=== PATIENT | male | born 1970 | race Caucasian/White ===

== ENCOUNTER 2020-04-04 20:50 | Observation (INO) | payer SELFPAY ==
[2020-04-04 21:03] VITALS: BP 98/61; PULSE 117; RESP 18; TEMP 38.7; O2SAT 96; BMI 28.0
--- NOTE | 2020-04-04 21:17 | CTR_ITS ---
PROCEDURE INFORMATION: Exam: CT Abdomen And Pelvis With Contrast Exam date and time: 04/04/2020 11:05 PM Age: 49 years old Clinical indication: Abdominal pain; Localized; Right lower quadrant (rlq); Patient HX: Rlq pain w n/v and fever TECHNIQUE: Imaging protocol: Computed tomography of the abdomen and pelvis with intravenous contrast. Radiation optimization: All CT scans at this facility use at least one of these dose optimization techniques: automated exposure control; mA and/or kV adjustment per patient size (includes targeted exams where dose is matched to clinical indication); or iterative reconstruction. Contrast material: OMNI 300; Contrast volume: 95 ml; Contrast route: INTRAVENOUS (IV); COMPARISON: No relevant prior studies available. RADIATION DOSE METRICS: Total DLP (mGy-cm): 824.81 FINDINGS: Lungs: Mild atelectasis at bilateral lung bases. Liver: Unremarkable. Gallbladder and bile ducts: Unremarkable. Pancreas: Unremarkable. Spleen: Unremarkable. Adrenals: Unremarkable. Kidneys and ureters: The kidneys are unremarkable. No renal stones identified. No hydronephrosis on either side. Stomach and bowel: No bowel obstruction identified. No diverticulitis identified. Appendix: The appendix is enlarged, measuring 1.4 cm in caliber on series 2, image 57. Moderate inflammatory change of the surrounding fat. Appearance is highly consistent with acute appendicitis. Prominent appendicolith in the proximal appendix. No perforation or abscess identified. Intraperitoneal space: No free intraperitoneal air identified. No free intraperitoneal fluid identified. Vasculature: No abdominal aortic aneurysm. Lymph nodes: Unremarkable. Bladder: Unremarkable as visualized. Reproductive: Unremarkable as visualized. Bones/joints: Minimal degenerative changes of the lower thoracic spine and the lumbar spine. Soft tissues: Unremarkable. CT/CT abdomen pelvis w con* [id number] IMPRESSION: 1. Acute appendicitis. No perforation or abscess identified. Radiation Dose CTDIVOL = (mGy): DLP = 824.81 (mGy-cm)
--- NOTE | 2020-04-04 21:18 | ED_ITS ---
Documented by User: MERARI Skinner 04/04/20 23:57 HPI - Abdominal Pain General: Chief Complaint: Abdominal Pain Stated Complaint: abd pain Time Seen by Provider: 04/04/20 21:14 History of Present Illness: HPI narrative: Patient planes right lower quadrant pain started day. And had a bowel movement today. Has been vomiting. MD elicited complaint: abdominal pain Pertinent past history: constipation Onset (ago): hour(s) Pain Consistency: constant Location: RLQ Severity: moderate Quality: cramping and aching Radiation: RLQ Migration to: no migration Exacerbating factors: nothing Relieving factors: nothing Context: other (Lives in [facility] appears to be [facility] travel down here on Sunday has not been rounding by with a COVID virus) Associated Symptoms: Reports nausea and vomiting; Denies chills and fever(s) Review of Systems Const: Denies: fever(s), chills or body aches Eyes: Denies: change in vision or blurry vision ENMT: Denies: throat pain or nasal congestion Card: Denies: chest pain or dyspnea on exertion Resp: Denies: dyspnea, productive cough or non-productive cough GI: Reports: abdominal pain, nausea and vomiting : Denies: difficulty urinating Musc: Denies: extremity pain Skin/Breast: Denies: rash Neuro: Denies: headache(s) Psych: Denies: anxiety or depression Jaron/Lymph: Denies: easy bruising PFSH ED PFSH: Medical History No significant past medical history Surgical History History of radius fracture R -- hardware in place Social History (Updated 04/05/20 @ 02:47 by Ravi Saunders MD) Smoking and tobacco status: current every day smoker cigars Years smoked cigars: 20 Alcohol intake: never Physical Exam Const: COMMON NORMALS: no acute distress, average body habitus and patient oriented x3 HENMT: COMMON NORMALS: normocephalic HEAD & SCALP: normal to inspection and normocephalic FACE & SINUS: normal facial exam Eye: COMMON NORMALS: conjunctivae normal GENERAL EYE: appearance normal, both eyes and all related structures CONJUNCTIVA: Yes conjunctivae normal Neck/C-Spine: COMMON NORMALS: no JVD Chest: COMMONS NORMALS: normal inspection of the chest Resp: COMMON NORMALS: normal respiratory effort and clear to auscultation bilaterally AUSCULTATION: clear to auscultation bilaterally Cardio: COMMON NORMALS: no JVD, regular rate and regular rhythm RATE: regular rate RHYTHM: regular rhythm GI: INSPECTION: Yes normal to inspection AUSCULTATION: Yes Hypoactive bowel sounds present PALPATION: Yes Tenderness to palpation present (GI) Details: RLQ PERCUSSION: normal to percussion Extremity: COMMON NORMALS: normal to inspection and full ROM Neuro: COMMON NORMALS: patient oriented x3 Course Vital Signs: Vital signs: Vital Signs Temperature 98.8 F 04/05/20 03:05 Pulse Rate 91 04/05/20 03:05 Respiratory Rate 18 04/05/20 03:05 Blood Pressure 112/69 04/05/20 03:05 Pulse Oximetry 95 04/05/20 03:05 MDM - Abdominal Pain MDM Narrative: Medical decision making narrative: Spoke with Dr. Strong after receiving call from the read patient has acute appendicitis. Dr. Strong will take it from here. Lab Data: Labs: Lab Results 04/04/20 04/04/20 04/04/20 Range/Units 21:20 21:20 21:20 WBC 13.6 H (4.0-10.0) 10^3/ uL RBC 4.80 (4.1-5.3) 10^6/u L Hgb 15.7 (11.7-16.6) g/dL Hct 46.3 (42.0-52.0) % MCV 96.5 H (80-94) fL MCH 32.7 (28.0-34.0) pg MCHC 33.9 (30.0-36.0) g/dL RDW 11.8 L (12.1-15.1) % Plt Count 184 (130-400) 10^3/c mm MPV 10.0 (7.4-10.4) fL Neut % (Auto) 91.1 % Lymph % (Auto) 5.4 % [place] % (Auto) 2.5 % Eos % (Auto) 0.1 % Baso % (Auto) 0.4 % Neut # (Auto) 12.4 H (1.8-7.7) 10^3/u L Lymph # (Auto) 0.7 L (0.8-4.8) 10^3/u L [place] # (Auto) 0.3 (0.2-0.9) 10^3/u L Eos # (Auto) 0.0 (0.0-0.8) 10^3/u L Baso # (Auto) 0.1 (0.0-0.1) 10^3/u L Nucleated RBC % (a uto) 0 % Nucleated RBCs # 0.0 /100WBC Sodium 136 (136-145) mmol/L Potassium 3.3 L (3.5-5.1) mmol/L Chloride 100 (98-107) mmol/L Carbon Dioxide 23 (22-29) mmol/L Anion Gap 16.3 (5-19) BUN 10 (6-20) mg/dL Creatinine 1.0 (0.7-1.2) mg/dL GFR Calculation 79.4 L (90-130) mL/min Glucose 128 H (65-115) mg/dL Calculated Osmolal ity 280 L (285-295) mOsm/k g Lactic Acid 1.1 (0.5-2.2) mmol/L Calcium 9.4 (8.5-10.5) mg/dL Total Bilirubin 1.3 H (0.15-1.2) mg/dL AST 18 (0-40) U/L ALT 19 (0-41) U/L Alkaline Phosphata se 55 (40-130) IU/L C-Reactive Protein 61.6 H (0.0-4.9) mg/L Total Protein 6.9 (6.6-8.7) g/dL Albumin 4.0 (3.5-5.2) g/dL Globulin 2.9 (1.3-4.6) g/dL Lipase 19 (13-60) U/L Urine Color (Yellow) Urine Appearance (CLEAR) Urine pH (5-7) Ur Specific Gravit y (1.005-1.030) Urine Protein (Negative) Urine Glucose (UA) (Normal) Urine Ketones (Negative) Urine Blood (Negative) Urine Nitrate (Negative) Urine Bilirubin (NEGATIVE) Urine Urobilinogen (Negative) mg/dL Ur Leukocyte July ase (Negative) 04/04/20 Range/Units 23:31 WBC (4.0-10.0) 10^3/ uL RBC (4.1-5.3) 10^6/u L Hgb (11.7-16.6) g/dL Hct (42.0-52.0) % MCV (80-94) fL MCH (28.0-34.0) pg MCHC (30.0-36.0) g/dL RDW (12.1-15.1) % Plt Count (130-400) 10^3/c mm MPV (7.4-10.4) fL Neut % (Auto) % Lymph % (Auto) % [place] % (Auto) % Eos % (Auto) % Baso % (Auto) % Neut # (Auto) (1.8-7.7) 10^3/u L Lymph # (Auto) (0.8-4.8) 10^3/u L [place] # (Auto) (0.2-0.9) 10^3/u L Eos # (Auto) (0.0-0.8) 10^3/u L Baso # (Auto) (0.0-0.1) 10^3/u L Nucleated RBC % (a uto) % Nucleated RBCs # /100WBC Sodium (136-145) mmol/L Potassium (3.5-5.1) mmol/L Chloride (98-107) mmol/L Carbon Dioxide (22-29) mmol/L Anion Gap (5-19) BUN (6-20) mg/dL Creatinine (0.7-1.2) mg/dL GFR Calculation (90-130) mL/min Glucose (65-115) mg/dL Calculated Osmolal ity (285-295) mOsm/k g Lactic Acid (0.5-2.2) mmol/L Calcium (8.5-10.5) mg/dL Total Bilirubin (0.15-1.2) mg/dL AST (0-40) U/L ALT (0-41) U/L Alkaline Phosphata se (40-130) IU/L C-Reactive Protein (0.0-4.9) mg/L Total Protein (6.6-8.7) g/dL Albumin (3.5-5.2) g/dL Globulin (1.3-4.6) g/dL Lipase (13-60) U/L Urine Color Yellow (Yellow) Urine Appearance Clear (CLEAR) Urine pH 6 (5-7) Ur Specific Gravit y 1.000 L (1.005-1.030) Urine Protein Neg (Negative) Urine Glucose (UA) Norm (Normal) Urine Ketones Negative (Negative) Urine Blood Neg (Negative) Urine Nitrate Negative (Negative) Urine Bilirubin Neg (NEGATIVE) Urine Urobilinogen Norm (Negative) mg/dL Ur Leukocyte July ase Negative (Negative) Discharge Plan Discharge Admit Provider: Ravi Saunders Discharge Date/Time: 04/05/20 02:35 Coding Level of Care Code ED Body Coverer for Chg Fwd Exam Comprehensive Documented by User: Syd Strong DO 04/05/20 04:08 HPI - Abdominal Pain General: Chief Complaint: Abdominal Pain Stated Complaint: abd pain Time Seen by Provider: 04/04/20 21:14 [facility] ED PFSH: Medical History No significant past medical history Surgical History History of radius fracture R -- hardware in place Social History (Updated 04/05/20 @ 02:47 by Ravi Saunders MD) Smoking and tobacco status: current every day smoker cigars Years smoked cigars: 20 Alcohol intake: never Course Consultations: Consultation #1: [email or web address] Vital Signs: Vital signs: Vital Signs Temperature 98.8 F 04/05/20 03:05 Pulse Rate 91 04/05/20 03:05 Respiratory Rate 18 04/05/20 03:05 Blood Pressure 112/69 04/05/20 03:05 Pulse Oximetry 95 04/05/20 03:05 MDM - Abdominal Pain MDM Narrative: Medical decision making narrative: 49-year-old male checked out to me by Mr. Jauregui. [place] is from out of town. He presents with right lower quadrant pain. He has a fever of 101.6. His white blood cell count is 13.6. Other laboratory is essentially benign. He has a dilated inflamed appendix by CT without perforation. Spoke with surgery. Recommends Zosyn, and surgery later this morning. Lab Data: Labs: Lab Results 04/04/20 04/04/20 04/04/20 Range/Units 21:20 21:20 21:20 WBC 13.6 H (4.0-10.0) 10^3/ uL RBC 4.80 (4.1-5.3) 10^6/u L Hgb 15.7 (11.7-16.6) g/dL Hct 46.3 (42.0-52.0) % MCV 96.5 H (80-94) fL MCH 32.7 (28.0-34.0) pg MCHC 33.9 (30.0-36.0) g/dL RDW 11.8 L (12.1-15.1) % Plt Count 184 (130-400) 10^3/c mm MPV 10.0 (7.4-10.4) fL Neut % (Auto) 91.1 % Lymph % (Auto) 5.4 % [place] % (Auto) 2.5 % Eos % (Auto) 0.1 % Baso % (Auto) 0.4 % Neut # (Auto) 12.4 H (1.8-7.7) 10^3/u L Lymph # (Auto) 0.7 L (0.8-4.8) 10^3/u L [place] # (Auto) 0.3 (0.2-0.9) 10^3/u L Eos # (Auto) 0.0 (0.0-0.8) 10^3/u L Baso # (Auto) 0.1 (0.0-0.1) 10^3/u L Nucleated RBC % (a uto) 0 % Nucleated RBCs # 0.0 /100WBC Sodium 136 (136-145) mmol/L Potassium 3.3 L (3.5-5.1) mmol/L Chloride 100 (98-107) mmol/L Carbon Dioxide 23 (22-29) mmol/L Anion Gap 16.3 (5-19) BUN 10 (6-20) mg/dL Creatinine 1.0 (0.7-1.2) mg/dL GFR Calculation 79.4 L (90-130) mL/min Glucose 128 H (65-115) mg/dL Calculated Osmolal ity 280 L (285-295) mOsm/k g Lactic Acid 1.1 (0.5-2.2) mmol/L Calcium 9.4 (8.5-10.5) mg/dL Total Bilirubin 1.3 H (0.15-1.2) mg/dL AST 18 (0-40) U/L ALT 19 (0-41) U/L Alkaline Phosphata se 55 (40-130) IU/L C-Reactive Protein 61.6 H (0.0-4.9) mg/L Total Protein 6.9 (6.6-8.7) g/dL Albumin 4.0 (3.5-5.2) g/dL Globulin 2.9 (1.3-4.6) g/dL Lipase 19 (13-60) U/L Urine Color (Yellow) Urine Appearance (CLEAR) Urine pH (5-7) Ur Specific Gravit y (1.005-1.030) Urine Protein (Negative) Urine Glucose (UA) (Normal) Urine Ketones (Negative) Urine Blood (Negative) Urine Nitrate (Negative) Urine Bilirubin (NEGATIVE) Urine Urobilinogen (Negative) mg/dL Ur Leukocyte July ase (Negative) 04/04/20 Range/Units 23:31 WBC (4.0-10.0) 10^3/ uL RBC (4.1-5.3) 10^6/u L Hgb (11.7-16.6) g/dL Hct (42.0-52.0) % MCV (80-94) fL MCH (28.0-34.0) pg MCHC (30.0-36.0) g/dL RDW (12.1-15.1) % Plt Count (130-400) 10^3/c mm MPV (7.4-10.4) fL Neut % (Auto) % Lymph % (Auto) % [place] % (Auto) % Eos % (Auto) % Baso % (Auto) % Neut # (Auto) (1.8-7.7) 10^3/u L Lymph # (Auto) (0.8-4.8) 10^3/u L [place] # (Auto) (0.2-0.9) 10^3/u L Eos # (Auto) (0.0-0.8) 10^3/u L Baso # (Auto) (0.0-0.1) 10^3/u L Nucleated RBC % (a uto) % Nucleated RBCs # /100WBC Sodium (136-145) mmol/L Potassium (3.5-5.1) mmol/L Chloride (98-107) mmol/L Carbon Dioxide (22-29) mmol/L Anion Gap (5-19) BUN (6-20) mg/dL Creatinine (0.7-1.2) mg/dL GFR Calculation (90-130) mL/min Glucose (65-115) mg/dL Calculated Osmolal ity (285-295) mOsm/k g Lactic Acid (0.5-2.2) mmol/L Calcium (8.5-10.5) mg/dL Total Bilirubin (0.15-1.2) mg/dL AST (0-40) U/L ALT (0-41) U/L Alkaline Phosphata se (40-130) IU/L C-Reactive Protein (0.0-4.9) mg/L Total Protein (6.6-8.7) g/dL Albumin (3.5-5.2) g/dL Globulin (1.3-4.6) g/dL Lipase (13-60) U/L Urine Color Yellow (Yellow) Urine Appearance Clear (CLEAR) Urine pH 6 (5-7) Ur Specific Gravit y 1.000 L (1.005-1.030) Urine Protein Neg (Negative) Urine Glucose (UA) Norm (Normal) Urine Ketones Negative (Negative) Urine Blood Neg (Negative) Urine Nitrate Negative (Negative) Urine Bilirubin Neg (NEGATIVE) Urine Urobilinogen Norm (Negative) mg/dL Ur Leukocyte July ase Negative (Negative) Discharge Plan Discharge Admit Provider: Ravi Saunders Discharge Date/Time: 04/05/20 02:35 Coding Level of Care Code ED Body Coverer for Chg Fwd Exam Comprehensive
[2020-04-04 21:25] LABS: Basophils # 0.1 10^3/uL (0.0-0.1); Basophils % 0.4 %; Eosinophils % 0.1 %; Hematocrit 46.3 % (42.0-52.0); Hemoglobin 15.7 g/dL (11.7-16.6); Lymphocytes # 0.7 10^3/uL (0.8-4.8); Lymphocytes % 5.4 %; Mean Corpuscular HGB Conc 33.9 g/dL (30.0-36.0); Mean Corpuscular Hemoglobin 32.7 pg (28.0-34.0); Mean Corpuscular Volume 96.5 fL (80-94); Monocytes # 0.3 10^3/uL (0.2-0.9); Monocytes % 2.5 %; Neutrophils # 12.4 10^3/uL (1.8-7.7); Neutrophils % 91.1 %; Nucleated Red Blood Cells % 0 %; Platelet Count 184 10^3/cmm (130-400); Red Cell Distribution Width 11.8 % (12.1-15.1); White Blood Count 13.6 10^3/uL (4.0-10.0)
[2020-04-04 21:44] LABS: Lactic Sepsis W/Reflex 1.1 mmol/L (0.5-2.2)
[2020-04-04 21:45] LABS: Alanine Aminotransferase 19 U/L (0-41); Alkaline Phosphatase 55 IU/L (40-130); Anion Gap 16.3 (5-19); Aspartate Amino Transferase 18 U/L (0-40); Blood Urea Nitrogen 10 mg/dL (6-20); Calcium 9.4 mg/dL (8.5-10.5); Carbon Dioxide 23 mmol/L (22-29); Chloride 100 mmol/L (98-107); Globulin 2.9 g/dL (1.3-4.6); Glomerular Filtration Rate 79.4 mL/min (90-130); Glucose 128 mg/dL (65-115); Lipase 19 U/L (13-60); Osmolality Calculated 280 mOsm/kg (285-295); Potassium 3.3 mmol/L (3.5-5.1); Sodium 136 mmol/L (136-145); Total Bilirubin 1.3 mg/dL (0.15-1.2); Total Protein 6.9 g/dL (6.6-8.7)
[2020-04-04 22:03] LABS: C Reactive Protein 61.6 mg/L (0.0-4.9)
[2020-04-04] MEDS: sodium chloride 0.9% 1,000 ML 999 ML IV (22:43)
[2020-04-04] MEDS: ondansetron 2 mg/ML SDV 2 mL 4 MG IVP (22:43)
[2020-04-04] MEDS: potassium chloride ER 10 mEq Tablet 40 MEQ PO (22:44)
[2020-04-04] MEDS: iohexol 300 mg/mL 100 mL Btl IV (23:23)
[2020-04-04 23:42] LABS: Add Urine Microscopic? NO
[2020-04-04 23:47] LABS: Bilirubin Urine Neg (NEGATIVE); Blood Urine Neg (Negative); Glucose Urine UA Norm (Normal); Ketones Urine Negative (Negative); Leukocyte Esterase Urine Negative (Negative); Nitrate Urine Negative (Negative); Protein Urine Neg (Negative); Urine Appearance Clear (CLEAR); Urine Color Yellow (Yellow); Urobilinogen Urine Norm (Negative); pH Urine 6 (5-7)
[2020-04-05] VITALS (22 sets, daily range): BP systolic 95–141; BP diastolic 40–81; PULSE 69–108; RESP 16–22; TEMP 36.7–37.8; O2SAT 90–96
[2020-04-05] MEDS: piperacillin-tazobactam 3.375 GM in sodium chloride 0.9% (plus) 50 ML IV (00:43)
--- NOTE | 2020-04-05 02:06 | PM.HP ---
Providers/Chief Complaint Admitting Physician: Ravi Saunders MD Chief Complaint: abd pain History of Present Illness Ismael Martinez is a 49 year old male who developed some lower abdominal pain about 36 hours ago. He went to bed and was hoping it would be better when he woke up yesterday but he said it was worse. He lives in [facility] and is in the area visiting his children. He became nauseated and vomited several times. There was no evidence of hematemesis. He says he has been having fevers and chills at home. He told me that they measured his temperature up to 105 degrees once, but he thinks there may have been something wrong with the thermometer. He has had a normal bowel movement within the past 12 hours. He eventually came to the hospital and a CAT scan showed evidence of acute appendicitis. The patient has never had a colonoscopy. He has no known family history of any colon neoplasia. Review of Systems General: Reports: 10 or more systems reviewed and unremarkable except in HPI and below Const: Reports: fever(s) and chills GI: Reports: abdominal pain, nausea and vomiting; Denies: change in bowel habits Medications/Allergies Allergies Allergy/AdvReac Type Severity Reaction Status Date / Time droperidol [From Inapsine] Allergy anxious Verified 04/05/20 02:45 propoxyphene Allergy vomiting Verified 04/05/20 02:45 [From Darvocet-N 100] PFSH Acute PFSH: Medical History (Updated 04/05/20 @ 02:41 by Ravi Saunders MD) No significant past medical history Surgical History (Updated 04/05/20 @ 02:41 by Ravi Saunders MD) History of radius fracture R -- hardware in place Social History (Updated 04/05/20 @ 02:47 by Ravi Saunders MD) Smoking and tobacco status: current every day smoker cigars Years smoked cigars: 20 Alcohol intake: never Vitals/I&O/Wt Last Vital Signs Temp 101.6 F H 04/04/20 21:03 Pulse 117 H 04/04/20 21:03 Resp 18 04/04/20 21:03 BP 98/61 04/04/20 21:03 Pulse Ox 96 04/04/20 21:03 Weight last 48 hrs Weight 190 lb Physical Exam Narrative: EXAM NARRATIVE: The patient was encountered in his hospital room. He does not appear to be in any distress. The pupils are equal. No carotid bruits are heard. The lungs are clear anteriorly. The heart is regular. The abdomen reveals bowel sounds it may be somewhat hypoactive. The abdomen is soft. Rovsing's sign is positive. The patient's maximum point of tenderness is at McBurney's point or slightly lateral to that. No obvious masses are palpated. The extremities reveal no edema. Neurologically the patient appears to be grossly intact. Data : 04/04/20 21:20 04/04/20 21:20 Micro: Microbiology 04/04/20 22:00 Blood Culture - Preliminary Blood SPECIMEN COLLECTED 04/04/20 21:20 Blood Culture - Preliminary Blood SPECIMEN COLLECTED CT Abd/Pel: Radiologist's impression: CT abdomen/pelvis 04/04/2020 iMPRESSION: 1. Acute appendicitis. No perforation or abscess identified. A&P Assessment and plan (1) Acute appendicitis with localized peritonitis: CT reviewed. I agree with the diagnosis of acute appendicitis. The appendix occupies a mostly retroperitoneal position behind the cecum. I discussed appendicitis with the patient in some detail. Both conservative and surgical methods of management were discussed. Surgical risks of bleeding, infection, internal organ injury, etc. were all gone over. The patient seems to understand and is agreeable to proceeding with an appendectomy today. Status: Acute Attestations Medical Necessity Statement*: Based on my medical assessment, presenting symptoms and consideration of the scope of surgical therapy, I expect this patient will require treatment in the hospital for a period of time spanning less than 2 midnights, and is therefore being placed in observation status. Coding Level of Care Code Acute Event Marketing Manager for [facility] Dejan Diagnoses Acute appendicitis with localized peritonitis K35.30
[2020-04-05] MEDS: dextrose 5%-ns + KCl 40 40 MEQ/1,000 ML BAG 125 MEQ IV (03:03)
[2020-04-05 04:47] LABS: Basophils # 0.1 10^3/uL (0.0-0.1); Basophils % 0.4 %; Eosinophils # 0.1 10^3/uL (0.0-0.8); Eosinophils % 0.4 %; Hematocrit 43.4 % (42.0-52.0); Hemoglobin 14.5 g/dL (11.7-16.6); Lymphocytes # 1.1 10^3/uL (0.8-4.8); Lymphocytes % 7.6 %; Mean Corpuscular HGB Conc 33.4 g/dL (30.0-36.0); Mean Corpuscular Hemoglobin 31.6 pg (28.0-34.0); Mean Corpuscular Volume 94.6 fL (80-94); Mean Platelet Volume 10.6 fL (7.4-10.4); Monocytes % 6.8 %; Neutrophils # 12.6 10^3/uL (1.8-7.7); Neutrophils % 84.2 %; Nucleated Red Blood Cells % 0 %; Platelet Count 189 10^3/cmm (130-400); Red Blood Count 4.59 10^6/uL (4.1-5.3); Red Cell Distribution Width 11.9 % (12.1-15.1)
[2020-04-05 05:07] LABS: Alanine Aminotransferase 17 U/L (0-41); Albumin Level 3.7 g/dL (3.5-5.2); Alkaline Phosphatase 46 IU/L (40-130); Anion Gap 15.5 (5-19); Aspartate Amino Transferase 16 U/L (0-40); Blood Urea Nitrogen 10 mg/dL (6-20); Calcium 8.5 mg/dL (8.5-10.5); Carbon Dioxide 24 mmol/L (22-29); Chloride 102 mmol/L (98-107); Globulin 2.8 g/dL (1.3-4.6); Glomerular Filtration Rate 71.1 mL/min (90-130); Glucose 145 mg/dL (65-115); Osmolality Calculated 283 mOsm/kg (285-295); Potassium 4.5 mmol/L (3.5-5.1); Sodium 137 mmol/L (136-145); Total Bilirubin 0.8 mg/dL (0.15-1.2); Total Protein 6.5 g/dL (6.6-8.7)
--- NOTE | 2020-04-05 05:42 | ANES.PREANE2 ---
Pre-Anesthetic Assessment Pre-Anesthetic Assessment: Height/Weight: Height 1.75 m Weight 86.183 kg Temp Pulse Resp BP Pulse Ox 100.0 F H 87 18 96/62 93 04/05/20 04:00 04/05/20 04:00 04/05/20 04:00 04/05/20 04:00 04/05/20 04:00 Proposed Procedure: Operation Date: 04/05/20 05:35 Proposed Procedures p Laparoscopic Appendectomy(Not Applicable) - Ravi Saunders MD Last intake: Intake Last Liquid Date 04/04/20 Last Liquid Time 18:00 Last Solid Date 04/04/20 Last Solid Time 15:00 Social: Social History: Tobacco and No alcohol Exam: Pre-Anes Outpt Exam: alert, oriented x 3, clear to auscultation bilaterally and regular rate & rhythm Airway: Submandibular: WNL Cervical ROM: WNL MP: 2 Dentition: Other (teeth ok) History/ROS: No significant history except as noted Pulmonary: Pulmonary: None reported CV/HEM: CV/HEM: None reported : : None reported Hepatic: Hepatic: None reported GI: GI: None reported Metabolic: Metabolic: None reported Musc/skel: Musc/skel: None reported Neuropsych: Neuropsych: None reported Anesthetic Plan: ASA status: 2 Anesthesia: Anesthesia Evaluation and General Risk of > 500 ml blood loss (7ml/kg in children): No Meds/Allergies Current Medications: Current Medications Generic Name Dose Route Start Last Admin Trade Name Freq PRN Reason Stop Dose Admin Potassium Chloride /Dextrose/Sod Cl 40 meq in 1,000 m ls @ 125 mls/hr 04/05/20 02:30 04/05/20 03:03 Dextrose 5%-Ns + Kcl 40 IV 125 mls/hr .Q8H MARIA A Administration PFSH Anesthesia PFSH: Medical History No significant past medical history Surgical History History of radius fracture R -- hardware in place Social History Smoking and tobacco status: current every day smoker cigars Years smoked cigars: 20 Alcohol intake: never Data Anesthesia CBC & Chem 7: 04/05/20 04:21 04/05/20 04:21 Other Labs: Laboratory Results - last 48 hr 04/04/20 04/04/20 04/04/20 21:20 21:20 21:20 WBC 13.6 H RBC 4.80 Hgb 15.7 Hct 46.3 MCV 96.5 H MCH 32.7 MCHC 33.9 RDW 11.8 L Plt Count 184 MPV 10.0 Neut % (Auto) 91.1 Lymph % (Auto) 5.4 [place] % (Auto) 2.5 Eos % (Auto) 0.1 Baso % (Auto) 0.4 Neut # (Auto) 12.4 H Lymph # (Auto) 0.7 L [place] # (Auto) 0.3 Eos # (Auto) 0.0 Baso # (Auto) 0.1 Nucleated RBC % (auto) 0 Nucleated RBCs # 0.0 Sodium 136 Potassium 3.3 L Chloride 100 Carbon Dioxide 23 Anion Gap 16.3 BUN 10 Creatinine 1.0 GFR Calculation 79.4 L Glucose 128 H Calculated Osmolality 280 L Lactic Acid 1.1 Calcium 9.4 Total Bilirubin 1.3 H AST 18 ALT 19 Alkaline Phosphatase 55 C-Reactive Protein 61.6 H Total Protein 6.9 Albumin 4.0 Globulin 2.9 Lipase 19 Urine Color Urine Appearance Urine pH Ur Specific [place] Urine Protein Urine Glucose (UA) Urine Ketones Urine Blood Urine Nitrate Urine Bilirubin Urine Urobilinogen Ur Leukocyte Esterase 04/04/20 04/05/20 04/05/20 23:31 04:21 04:21 WBC 15.0 H RBC 4.59 Hgb 14.5 Hct 43.4 MCV 94.6 H MCH 31.6 MCHC 33.4 RDW 11.9 L Plt Count 189 MPV 10.6 H Neut % (Auto) 84.2 Lymph % (Auto) 7.6 [place] % (Auto) 6.8 Eos % (Auto) 0.4 Baso % (Auto) 0.4 Neut # (Auto) 12.6 H Lymph # (Auto) 1.1 [place] # (Auto) 1.0 H Eos # (Auto) 0.1 Baso # (Auto) 0.1 Nucleated RBC % (auto) 0 Nucleated RBCs # 0.0 Sodium 137 Potassium 4.5 Chloride 102 Carbon Dioxide 24 Anion Gap 15.5 BUN 10 Creatinine 1.1 GFR Calculation 71.1 L Glucose 145 H Calculated Osmolality 283 L Lactic Acid Calcium 8.5 Total Bilirubin 0.8 AST 16 ALT 17 Alkaline Phosphatase 46 C-Reactive Protein Total Protein 6.5 L Albumin 3.7 Globulin 2.8 Lipase Urine Color Yellow Urine Appearance Clear Urine pH 6 Ur Specific [place] 1.000 L Urine Protein Neg Urine Glucose (UA) Norm Urine Ketones Negative Urine Blood Neg Urine Nitrate Negative Urine Bilirubin Neg Urine Urobilinogen Norm Ur Leukocyte Esterase Negative Micro: Microbiology 04/04/20 22:00 Blood Culture - Preliminary Blood SPECIMEN COLLECTED 04/04/20 21:20 Blood Culture - Preliminary Blood SPECIMEN COLLECTED Cardiac Studies: No Data to Display
[2020-04-05] MEDS: metroNIDAZOLE IV 500 MG/100 ML PREMIX 100 MG IV (06:05)
--- NOTE | 2020-04-05 06:49 | P.OP_ITS ---
Operative Report Date of procedure: April 05, 2020 Pre-op Diagnosis: Acute appendicitis. Post-op Diagnosis: Same, with localized perforation. Procedure Done: Laparoscopic appendectomy. Specimens removed/disposition: Appendix. Surgeon: Ravi Saunders Anesthesia: General Estimated blood loss (mL): 5 Complications: None. Condition: stable Disposition: PACU Procedure: The patient was brought to the Operating Room and was placed in a supine position on the operating room table. General endotracheal anesthesia was induced. The abdomen was prepped and draped in a sterile fashion. A small vertical incision was carried out in the superior aspect of the umbilicus. Blunt dissection was carried out down to the fascia, which was grasped with a Nayely clamp. A stay suture of 0 Vicryl was placed on either side of the midline and the midline fascia was incised. The underlying peritoneum was opened bluntly and the [place] port was placed directly into the peritoneal cavity and was held in place with the inflatable balloon. The peritoneal cavity was insufflated with carbon dioxide. The laparoscope was used to inspect the peritoneal cavity. No gross abno rmalities were initially noted. Two 5-millimeter ports were placed in the left lower quadrant under direct vision. The patient was tilted in a Trendelenburg position and slightly to the left side. A laparoscopic Wendy was used to elevate the cecum and the appendix was identified. The base was inflamed and the appendix then took a retrocecal turn. The appendix was freed using blunt dissection. It was found that the patient had a necrotic area/perforation at the junction of the proximal and middle thirds of the appendix. A fecalith fell out of the area as the appendix was being manipulated. The fecalith was eventually retrieved in the laparoscopic bag along with the appendix. The mesoappendix was divided using cautery to maintain hemostasis at the base of the appendix. The base of the appendix appeared relatively healthy and was divided using an endoscopic stapler. The appendix and separate fecalith were removed from the peritoneal cavity after being placed in a laparoscopic bag. The right lower quadrant and pelvis were then extensively irrigated. The staple line on the cecum was identified and appeared to be in good condition. The Asia port was removed from the umbilical site and the stay sutures of Vicryl were tied to each other at the umbilicus. An additional [id number] suture of 0 Vicryl was placed, closing the fascial defect so that it was airtight. A final round of irrigation was carried out in the right lower quadrant and the pelvis. No ongoing problems were seen. The remaining ports were removed from the abdominal wall as the pneumoperitoneum was evacuated. All skin incisions were closed using inverted interrupted sutures of 4-0 Vicryl. Benzoin and Steri-Strips were placed over the incisions and Band- Aids followed. The patient was taken to the Recovery Room in stable condition postoperatively.
[2020-04-05] MEDS: ketorolac 30 mg/mL INJ IVP (07:29)
[2020-04-05] MEDS: famotidine 20 mg/2 mL INJ IVP (08:20)
[2020-04-05] MEDS: D5-NS 0.45% + KCL 20 mEq 20 MEQ/1,000 ML BAG 100 MEQ IV (08:22)
[2020-04-05] MEDS: heparin 5,000 unit/mL INJ 1 mL 5000 UNIT SUBCUT (08:24)
[2020-04-05] MEDS: levalbuterol 0.63 mg/3 mL Neb INHALATION (09:00)
--- NOTE | 2020-04-05 09:14 | PC.CHAP ---
Pastoral Care Encounter/Spiritual Assessment Type of Contact [] Declined geopolitics teacher visit [] Patient/Family/Request visit [] Outpatient visit [] Follow-up visit [] Physician referral [] Code/Alert [x] Routine visit [] Staff referral [] Actively dying [] Patient sleeping [] Family support [] [] Out of room [] Palliative care [] [] Receiving care in room [] Pre-surgical visit [] Trauma [] Long length of stay [] ICU visit [] Other: Relational/Emotional Strength [] Patient feels connected with others/family/visitors/staff [] Distress [] Loneliness/isolation [] Abandonment Spirituality of Patient [] Person of Araseli [] Attends Mandaen of their Araseli [] Believes in Prayer [] Reads Bible or Hinduism materials [] There are Spiritual issues to be addressed Driver Engineer Interventions [x] Prayer [] Active listening [x] Non-anxious presence [] Spiritual/emotional support [] Crisis/trauma care [] Spiritual counseling [] Bereavement support [] Provided bereavement packet [] Provided Bible/devotional materials [] Provided toy/stuffed animal, coloring book to patient or family member [] Provided Communion [] Anointing/[place] [] Salvation [x] Completed spiritual assessment [] Other: Impact on Illness or Injury [] Angry [] Fearful [] Anxious [] Often cries [] Exhaustion [] Unable to work [] Unable to attend adventism [] Unable to walk/stand [] Unable to read [] Unable to drive [] Unable to eat/drink [] Unable to sleep [] Unable to be with family [] Patient intubated [] Other: Summary Patient is of another araseli- but allowed prayer. Patient states he is feeling better. Time spent with patient 5 min
[2020-04-05] MEDS: HYDROcodone-acetaminophen 5-325 mg Tablet PO (09:15)
--- NOTE | 2020-04-05 13:21 | PM.DCS ---
Discharge Providers Date of Admission: 04/05/20 00:11 Date of Discharge: April 05, 2020 Attending Provider at Admission: Ravi Saunders MD Attending Provider at Discharge: Ravi Saunders MD Primary Care Provider: DOCTOR NOT ON FILE Diagnoses at Discharge Discharge Diagnosis (1) Acute appendicitis with localized peritonitis: Status: Acute Reason for Visit Reason for Visit: abd pain Hospital Course Discharge Summary: This is a 49-year-old white male who presented to the emergency department after a 36-hour history of right lower quadrant abdominal pain. A CAT scan was consistent with acute appendicitis. He went to the operating room the same day and a laparoscopic appendectomy was performed. He was found to have a small area of necrosis and early perforation in the proximal appendix. Postoperatively the patient was doing well. His vital signs were stable and he was feeling like he wanted to go home. I told him that because of the small localized perforation I wanted to leave him on antibiotics for about 5 days at home. He lives in [facility] and intends to had that direction as early as tomorrow so he will not be here for any surgical follow-up. He plans to get together with his primary care physician at home and I told him to have them call me with any questions or concerns. He was instructed with respect to wound care, activity limitations for 6 weeks, diet, etc. Physical Exam Narrative: EXAM NARRATIVE: At the time of discharge the patient's dressings were all intact and his incisions looked good. Discharge Data Data Completed and Pending: Completed Studies During Hospitalization Category Date Time Status CT abdomen pelvis w con* [id number] Urge nt Cat Scan 04/04/20 21:17 Completed Pending at discharge Category Date Time Status Blood Culture Sta t Lab 04/04/20 22:00 Results Pathology: Surgic al [PTH] Routine Pth 04/05/20 06:46 Received Labs from last 24 hours 04/05/20 04/05/20 04/04/20 04:21 04:21 23:31 WBC 15.0 H RBC 4.59 Hgb 14.5 Hct 43.4 MCV 94.6 H MCH 31.6 MCHC 33.4 RDW 11.9 L Plt Count 189 MPV 10.6 H Neut % (Auto) 84.2 Lymph % (Auto) 7.6 [place] % (Auto) 6.8 Eos % (Auto) 0.4 Baso % (Auto) 0.4 Neut # (Auto) 12.6 H Lymph # (Auto) 1.1 [place] # (Auto) 1.0 H Eos # (Auto) 0.1 Baso # (Auto) 0.1 Nucleated RBC % (a uto) 0 Nucleated RBCs # 0.0 Sodium 137 Potassium 4.5 Chloride 102 Carbon Dioxide 24 Anion Gap 15.5 BUN 10 Creatinine 1.1 GFR Calculation 71.1 L Glucose 145 H Calculated Osmolal ity 283 L Lactic Acid Calcium 8.5 Total Bilirubin 0.8 AST 16 ALT 17 Alkaline Phosphata se 46 C-Reactive Protein Total Protein 6.5 L Albumin 3.7 Globulin 2.8 Lipase Urine Color Yellow Urine Appearance Clear Urine pH 6 Ur Specific Gravit y 1.000 L Urine Protein Neg Urine Glucose (UA) Norm Urine Ketones Negative Urine Blood Neg Urine Nitrate Negative Urine Bilirubin Neg Urine Urobilinogen Norm Ur Leukocyte July ase Negative 04/04/20 04/04/20 04/04/20 21:20 21:20 21:20 WBC 13.6 H RBC 4.80 Hgb 15.7 Hct 46.3 MCV 96.5 H MCH 32.7 MCHC 33.9 RDW 11.8 L Plt Count 184 MPV 10.0 Neut % (Auto) 91.1 Lymph % (Auto) 5.4 [place] % (Auto) 2.5 Eos % (Auto) 0.1 Baso % (Auto) 0.4 Neut # (Auto) 12.4 H Lymph # (Auto) 0.7 L [place] # (Auto) 0.3 Eos # (Auto) 0.0 Baso # (Auto) 0.1 Nucleated RBC % (a uto) 0 Nucleated RBCs # 0.0 Sodium 136 Potassium 3.3 L Chloride 100 Carbon Dioxide 23 Anion Gap 16.3 BUN 10 Creatinine 1.0 GFR Calculation 79.4 L Glucose 128 H Calculated Osmolal ity 280 L Lactic Acid 1.1 Calcium 9.4 Total Bilirubin 1.3 H AST 18 ALT 19 Alkaline Phosphata se 55 C-Reactive Protein 61.6 H Total Protein 6.9 Albumin 4.0 Globulin 2.9 Lipase 19 Urine Color Urine Appearance Urine pH Ur Specific Gravit y Urine Protein Urine Glucose (UA) Urine Ketones Urine Blood Urine Nitrate Urine Bilirubin Urine Urobilinogen Ur Leukocyte July ase Vitals: Last Vital Signs Temp 98.0 F 04/05/20 11:48 Pulse 91 04/05/20 11:48 Resp 18 04/05/20 11:48 BP 102/63 04/05/20 11:48 Pulse Ox 95 04/05/20 11:48 Discharge Plan Discharge Patient Disposition: Home, Self-Care Condition: Stable Prescriptions: New hydrocodone-acetaminophen 5-325 mg tablet 1 - 2 tab PO Q5H PRN (Reason: pain) Qty: 30 RF: 0 metronidazole 500 mg tablet 500 mg PO TID Qty: 15 RF: 0 ciprofloxacin HCl 500 mg tablet 500 mg PO BID Qty: 10 RF: 0 Discharge Orders: Discharge Order (Routine); Ordered 04/05/20 Ordered By: Ravi Saunders Discharge Diet: Advance as tolerated Discharge Activity: Limit activity as instructed Activity Restrictions/Additional Instructions: 1. Discharge to home today. 2. Follow-up with your regular physician as discussed. 3. Bandages / bandaids off tomorrow, leave Steri-Strip(s) on, may shower. 4. [place] 5/325 1-2 tablets by mouth every 5 hours as needed for pain. #30, no refills. 5. Ciprofloxacin 500 mg 1 tablet by mouth twice daily until gone. #10, no refills. 6. Metronidazole 500 mg 1 tablet by mouth 3 times daily until gone. #15, no refills. No lifting over 20 pounds, no repetitive bending or twisting, no strenuous pushing / pulling or other heavy activity. Ambulate regularly. May go up and down steps if needed. No physical restrictions after 6 weeks. Discharge Attestations Time Spent in Discharge Care*: less than 30 min Quality Metrics Clinical Quality Measures During this hospital stay, did patient experience: None Coding Level of Care Code Acute Travel Registered Nurse Pacu for Solit[employer] Fwmack Diagnoses Acute appendicitis with localized peritonitis K35.30
--- NOTE | 2020-04-05 15:49 | PC.RESP ---
Smoking Cessation information with a schedule of classes sent to patient.
--- NOTE | 2020-04-05 16:20 | PC.NURSE ---
Patient's medications delivered to patient at bedside from [facility] pharmacy. Reviewed patient's discharge with patient at bedside. Patient verbalized understanding of follow up appointment and how and when to take medications. Patient is A&Ox3. Respirations even and non-labored on room air. Patient wheel chaired to private car.
== END 2020-04-05 14:18 | disposition home or self-care (01) ==
LOC: ER 04-05 00:07 → MEDSURG 04-05 01:04
PROVIDERS: Emergency Medicine; Nurse Practitioner Family; Admitting Provider Surgery; Visit Provider Surgery
PROC: 0DTJ4ZZ Resection of Appendix, Percutaneous Endoscopic Approach (ICD-10-PCS; CPT 44970; principal; 2020-04-05 05:15)
DX: K35.30 Acute appendicitis with localized peritonitis, without perforation or gangrene (principal); F17.290 Nicotine dependence, other tobacco product, uncomplicated
CPT/HCPCS: 44970; 12345; 36415; 74177; 80053; 81003; 83605; 83690; 85025; 86140; 87040; 87205; 88304; 94640; 96365; 96372; 96375; 99283; 99285; G0378; J0131; J0690; J1100; J1644; J1885; J2001; J2405; J2543; J2704; J2710; J3010; J3490; J7030; J7614; Q9967; S0030

== ENCOUNTER 2020-04-07 13:49 | Emergency (ER) | payer SELFPAY ==
[2020-04-07] VITALS (7 sets, daily range): BP systolic 121–140; BP diastolic 80–87; PULSE 93–119; RESP 14–20; TEMP 36.8; O2SAT 92–93; BMI 28.0
--- NOTE | 2020-04-07 15:23 | PC.NURSE ---
Pt and family updated on wait for room. Pt given clean catch kit for urine sample, pt in the bathroom.
[2020-04-07 16:16] LABS: Basophils % 0.3 %; Eosinophils # 0.1 10^3/uL (0.0-0.8); Eosinophils % 0.4 %; Hematocrit 49.1 % (42.0-52.0); Hemoglobin 16.5 g/dL (11.7-16.6); Lymphocytes # 1.1 10^3/uL (0.8-4.8); Lymphocytes % 9.6 %; Mean Corpuscular HGB Conc 33.6 g/dL (30.0-36.0); Mean Corpuscular Hemoglobin 31.6 pg (28.0-34.0); Mean Corpuscular Volume 94.1 fL (80-94); Mean Platelet Volume 10.7 fL (7.4-10.4); Monocytes # 1.1 10^3/uL (0.2-0.9); Neutrophils # 9.45 10^3/uL (1.8-7.7); Nucleated Red Blood Cells % 0 %; Platelet Count 241 10^3/cmm (130-400); Red Blood Count 5.22 10^6/uL (4.1-5.3); Red Cell Distribution Width 11.9 % (12.1-15.1); White Blood Count 11.8 10^3/uL (4.0-10.0)
--- NOTE | 2020-04-07 16:17 | W.ED.ABDPA2 ---
Documented by User: RUSSELL Caba 04/08/20 07:28 HPI - Abdominal Pain General: Chief Complaint: Nausea/Vomiting/Diarrhea Stated Complaint: abd pain Time Seen by Provider: 04/07/20 16:06 Source: patient Mode of arrival: ambulatory Limitations: no limitations History of Present Illness: HPI narrative: Patient is a 49-year-old male who presents to ED today with complaints of diffuse abdominal pain. Patient is status post appendectomy [address] Saunders. Patient tells me after he was discharged from the hospital and the following day he seemed to be improving however yesterday around 7 PM he began developing worsening right lower quadrant pain. Patient states into today pain has become diffuse. He has had one episode of vomiting. He describes some mild constipation and mild nausea associated with his hydrocodone use. Patient reports feeling febrile while waiting in the waiting room. MD elicited complaint: abdominal pain Onset (ago): hour(s) Pain Consistency: constant Location: Diffuse and RLQ Severity: severe Radiation: none Migration to: no migration Relieving factors: nothing Associated Symptoms: Reports fever(s) (subjective ), nausea and vomiting (x 1); Denies chills, coffee ground emesis, dysuria, heartburn, hematochezia and hematemesis Review of Systems Const: Reports: fever(s) (subjective ); Denies: chills, body aches, fatigue or malaise Card: Denies: chest pain Resp: Denies: dyspnea GI: Reports: abdominal pain, nausea and vomiting (x 1); Denies: hematemesis, coffee ground emesis, heartburn, pain on defecation, hematochezia or white/light colored stool : Denies: flank pain, difficulty urinating, dysuria, urinary frequency or urinary urgency Musc: Denies: neck pain or back pain Neuro: Denies: headache(s) PFSH ED PFSH: Medical History (Updated 04/07/20 @ 19:47 by RUSSELL [place]) No significant past medical history Surgical History History of radius fracture R -- hardware in place Social History Smoking and tobacco status: current every day smoker cigars Years smoked cigars: 20 Alcohol intake: never Physical Exam Const: COMMON NORMALS: average body habitus, patient oriented x3, no limitations, healthy appearing, alert and well nourished GENERAL APPEARANCE: cooperative and in distress (appears uncomfortable ) HENMT: COMMON NORMALS: normocephalic and atraumatic HEAD & SCALP: normocephalic and atraumatic Resp: COMMON NORMALS: normal respiratory effort and clear to auscultation bilaterally AUSCULTATION: clear to auscultation bilaterally Cardio: COMMON NORMALS: regular rate and regular rhythm RATE: regular rate RHYTHM: regular rhythm GI: COMMON NORMALS: No hepatosplenomegaly present and no masses INSPECTION: Yes other (surgical incisions look clean ) AUSCULTATION: Yes normoactive bowel sounds PALPATION: Yes Tenderness to palpation present (GI) (diffuse abdominal tenderness ), Yes Guarding due to palpation present (GI) and Yes No hepatosplenomegaly present Neuro: COMMON NORMALS: patient oriented x3 SENSORIUM/ORIENTATION: Yes alert Course Vital Signs: Vital signs: Vital Signs Temperature 98.3 F 04/07/20 13:56 Pulse Rate 93 04/07/20 20:09 Respiratory Rate 20 H 04/07/20 20:09 Blood Pressure 124/84 04/07/20 20:09 Pulse Oximetry 93 04/07/20 20:09 MDM - Abdominal Pain MDM Narrative: Medical decision making narrative: Care transferred to Wenceslao Ryan PA-C pending CT scan/results. Lab Data: Labs: Lab Results 04/07/20 04/07/20 04/07/20 Range/Units 16:03 16:03 16:03 WBC 11.8 H (4.0-10.0) 10^3/ uL RBC 5.22 (4.1-5.3) 10^6/u L Hgb 16.5 (11.7-16.6) g/dL Hct 49.1 (42.0-52.0) % MCV 94.1 H (80-94) fL MCH 31.6 (28.0-34.0) pg MCHC 33.6 (30.0-36.0) g/dL RDW 11.9 L (12.1-15.1) % Plt Count 241 (130-400) 10^3/c mm MPV 10.7 H (7.4-10.4) fL Neut % (Auto) 80.0 % Lymph % (Auto) 9.6 % [place] % (Auto) 9.0 % Eos % (Auto) 0.4 % Baso % (Auto) 0.3 % Neut # (Auto) 9.45 H (1.8-7.7) 10^3/u L Lymph # (Auto) 1.1 (0.8-4.8) 10^3/u L [place] # (Auto) 1.1 H (0.2-0.9) 10^3/u L Eos # (Auto) 0.1 (0.0-0.8) 10^3/u L Baso # (Auto) 0.0 (0.0-0.1) 10^3/u L Nucleated RBC % (a uto) 0 % Nucleated RBCs # 0.0 /100WBC Sodium 135 L (136-145) mmol/L Potassium 4.0 (3.5-5.1) mmol/L Chloride 99 (98-107) mmol/L Carbon Dioxide 20 L (22-29) mmol/L Anion Gap 20.0 H (5-19) BUN 13 (6-20) mg/dL Creatinine 0.9 (0.7-1.2) mg/dL GFR Calculation 89.7 L (90-130) mL/min Glucose 127 H (65-115) mg/dL Calculated Osmolal ity 278 L (285-295) mOsm/k g Lactate 1.0 (0.5-2.2) mmol/L Calcium 9.8 (8.5-10.5) mg/dL Total Bilirubin 0.9 (0.15-1.2) mg/dL AST 15 (0-40) U/L ALT 15 (0-41) U/L Alkaline Phosphata se 61 (40-130) IU/L Total Protein 8.0 (6.6-8.7) g/dL Albumin 4.0 (3.5-5.2) g/dL Globulin 4.0 (1.3-4.6) g/dL Lipase 11 L (13-60) U/L Discharge Plan Discharge Patient Disposition: Home, Self-Care Clinical Impression: Ileus, Postoperative ileus Condition: Stable Prescriptions: New Zofran 4 mg tablet 4 mg PO Q8H Qty: 20 RF: 0 Miralax 17 gram/dose powder 17 gm PO DAILY PRN (Reason: constipation) Qty: 119 RF: 0 docusate sodium 100 mg capsule 100 mg PO BID Qty: 30 RF: 0 No Action hydrocodone-acetaminophen 5-325 mg tablet 1 - 2 tab PO Q5H PRN (Reason: pain) Qty: 30 RF: 0 metronidazole 500 mg tablet 500 mg PO TID Qty: 15 RF: 0 ciprofloxacin HCl 500 mg tablet 500 mg PO BID Qty: 10 RF: 0 Discharge Orders: Discharge Order (Routine); Ordered 04/07/20 Ordered By: Wenceslao Ryan Discharge Diet: Advance as tolerated and Clear Liquid Discharge Activity: Increase activity as tolerated Patient Instructions: Ileus (ED) Activity Restrictions/Additional Instructions: Follow-up with medical provider as directed. Call Dr. Saunders tomorrow morning to set up an appointment with him in the outpatient clinic. Take medications as prescribed. Remember to start diet for the next 24 to 48 hours with clear liquids only and then advance as tolerated. Drink plenty of fluids and stay hydrated. Return to the ER or your medical provider if condition worsens. Please read and understand discharge instructions. If any questions, please ask. Discharge Date/Time: 04/07/20 20:11 Sign Out Sign Out Data: Patient Sign Out occurred on 04/07/20 at 17:15. Patient's care was discussed, and care was transferred from to RUSSELL Birmingham. Coding Level of Care Code ED Clockmaker Apprentice for Chg Fwd Exam Detailed Documented by User: RUSSELL Birmingham 04/08/20 02:28 HPI - Abdominal Pain General: Chief Complaint: Nausea/Vomiting/Diarrhea Stated Complaint: abd pain Time Seen by Provider: 04/07/20 16:06 PFS ED PFSH: Medical History (Updated 04/07/20 @ 19:47 by RUSSELL Birmingham) No significant past medical history Surgical History History of radius fracture R -- hardware in place Social History Smoking and tobacco status: current every day smoker cigars Years smoked cigars: 20 Alcohol intake: never Course Reevaluation(s): Reevaluation #1: Patient symptoms have improved with pain meds and nausea meds. Consultations: Consultation #1: I contacted Dr. Saunders the surgeon who performed the appendectomy couple days ago. I told about patient's case and the CT findings of an ileus. He had told me that he would see patient at clinic this week. Vital Signs: Vital signs: Vital Signs Temperature 98.3 F 04/07/20 13:56 Pulse Rate 93 04/07/20 20:09 Respiratory Rate 20 H 04/07/20 20:09 Blood Pressure 124/84 04/07/20 20:09 Pulse Oximetry 93 04/07/20 20:09 MDM - Abdominal Pain MDM Narrative: Medical decision making narrative: Patient is a 49-year-old male who comes to the ED with abdominal pain. Patient had an appendectomy performed on April [address] Saunders. He has constipation. Physical exam showed profuse tenderness throughout abdomen. White blood cells 11.8. CT findings showed an ileus and minimal post op fluid in right lower quadrant. I spoke with Dr. Gonzales told about patient's condition and CT findings and he said he would see patient in the clinic this week. Patient was told to contact Dr. Saunders tomorrow morning to set up an appointment for reevaluation. Patient was discharged and told to have a clear liquid diet for the next 24 to 48 hours and advance as tolerated. I sent him home with a prescription for MiraLAX, docusate and Zofran. I told him to continue taking his previously prescribed pain meds and antibiotics. Return to ED for reevaluation if symptoms worsen. Patient understood and agrees with plan. Lab Data: Labs: Lab Results 04/07/20 04/07/20 04/07/20 Range/Units 16:03 16:03 16:03 WBC 11.8 H (4.0-10.0) 10^3/ uL RBC 5.22 (4.1-5.3) 10^6/u L Hgb 16.5 (11.7-16.6) g/dL Hct 49.1 (42.0-52.0) % MCV 94.1 H (80-94) fL MCH 31.6 (28.0-34.0) pg MCHC 33.6 (30.0-36.0) g/dL RDW 11.9 L (12.1-15.1) % Plt Count 241 (130-400) 10^3/c mm MPV 10.7 H (7.4-10.4) fL Neut % (Auto) 80.0 % Lymph % (Auto) 9.6 % [place] % (Auto) 9.0 % Eos % (Auto) 0.4 % Baso % (Auto) 0.3 % Neut # (Auto) 9.45 H (1.8-7.7) 10^3/u L Lymph # (Auto) 1.1 (0.8-4.8) 10^3/u L [place] # (Auto) 1.1 H (0.2-0.9) 10^3/u L Eos # (Auto) 0.1 (0.0-0.8) 10^3/u L Baso # (Auto) 0.0 (0.0-0.1) 10^3/u L Nucleated RBC % (a uto) 0 % Nucleated RBCs # 0.0 /100WBC Sodium 135 L (136-145) mmol/L Potassium 4.0 (3.5-5.1) mmol/L Chloride 99 (98-107) mmol/L Carbon Dioxide 20 L (22-29) mmol/L Anion Gap 20.0 H (5-19) BUN 13 (6-20) mg/dL Creatinine 0.9 (0.7-1.2) mg/dL GFR Calculation 89.7 L (90-130) mL/min Glucose 127 H (65-115) mg/dL Calculated Osmolal ity 278 L (285-295) mOsm/k g Lactate 1.0 (0.5-2.2) mmol/L Calcium 9.8 (8.5-10.5) mg/dL Total Bilirubin 0.9 (0.15-1.2) mg/dL AST 15 (0-40) U/L ALT 15 (0-41) U/L Alkaline Phosphata se 61 (40-130) IU/L Total Protein 8.0 (6.6-8.7) g/dL Albumin 4.0 (3.5-5.2) g/dL Globulin 4.0 (1.3-4.6) g/dL Lipase 11 L (13-60) U/L Imaging Data ^: CT Abd/Pel: Attestation: I personally reviewed and interpreted this imaging study as follows: Radiologist's impression: [address] [place] [address] CT Scan Report Signed Patient: Ismael Martinez Unit #: [id number] : 1970 Age/Sex: 49 / M ADM Date: 04/07/20 Loc: ER Room/Bed: Attending Dr: Ordering Provider/Ordering MD: Rae Mills Date of Service: 04/07/20 Procedure(s): CT abdomen pelvis w con* [id number] Accession Number(s): [id number] Report Number: [id number] PROCEDURE INFORMATION: Exam: CT Abdomen And Pelvis With Contrast Exam date and time: 04/07/2020 5:47 PM Age: 49 years old Clinical indication: Abdominal pain; Prior surgery; Surgery date: Post-operative (0-2 days); Surgery type: Post op pain from appendectomy, now sever lower right quad pain and middle lower abd pain; Additional info: S/P appendectomy; Diffuse/rlq abdominal pain TECHNIQUE: Imaging protocol: Computed tomography of the abdomen and pelvis with intravenous contrast. Radiation optimization: All CT scans at this facility use at least one of these dose optimization techniques: automated exposure control; mA and/or kV adjustment per patient size (includes targeted exams where dose is matched to clinical indication); or iterative reconstruction. Contrast material: OMNI 300; Contrast volume: 95 ml; Contrast route: INTRAVENOUS (IV); COMPARISON: No relevant prior studies available. RADIATION DOSE METRICS: Total DLP (mGy-cm): 1070.66 FINDINGS: Lungs: There is dependent atelectasis at both lung bases. Liver: There is no focal abnormality within the liver. Gallbladder and bile ducts: The gallbladder is normal. Pancreas: The pancreas is normal. Spleen: The spleen is normal. Adrenals: The adrenal glands are normal. Kidneys and ureters: The kidneys are normal. There is some mild perinephric stranding on the right of uncertain significance. There is no evidence of renal or ureteral calcifications. There is no evidence of hydronephrosis. Stomach and bowel: There is moderate fluid distention of the right colon and of small bowel loops in the lower abdomen most likely representing postoperative ileus. There is slight focal wall thickening of some small bowel loops adjacent to the surgical site . Appendix: There has been an appendectomy. Intraperitoneal space: There is approximately 3 x 5 cm sized fluid collection in the right pericolic gutter and some mild fluid and edema along the right pericolic gutter. These findings are not unusual so soon after an appendectomy. Vasculature: Unremarkable. No abdominal aortic aneurysm. Lymph nodes: There is mild periaortic adenopathy with lymph nodes measuring up to 10 x 14 mm, most likely reactive adenopathy. Bladder: Unremarkable as visualized. Reproductive: Unremarkable as visualized. Bones/joints: Unremarkable. No acute fracture. Soft tissues: Unremarkable. Other findings: No definite abscess is identified. CT/CT abdomen pelvis w con* [id number] IMPRESSION: 1. Postoperative changes of recent appendectomy. 2. Dilated large and small bowel loops suggesting ileus. 3. Small postoperative fluid collection in the right lower quadrant. 4. Mild atelectasis. 5. Mild periaortic adenopathy, most likely reactive. Radiation Dose CTDIVOL = (mGy): DLP = 1070.66 (mGy-cm) Dictated By: Tyrell Rodgers Signed By: Tyrell Rodgers Signed Date/Time: 04/07/201826 DD/ 25 Discharge Plan Discharge Patient Disposition: Home, Self-Care Clinical Impression: Ileus, Postoperative ileus Condition: Stable Prescriptions: New Zofran 4 mg tablet 4 mg PO Q8H Qty: 20 RF: 0 Miralax 17 gram/dose powder 17 gm PO DAILY PRN (Reason: constipation) Qty: 119 RF: 0 docusate sodium 100 mg capsule 100 mg PO BID Qty: 30 RF: 0 No Action hydrocodone-acetaminophen 5-325 mg tablet 1 - 2 tab PO Q5H PRN (Reason: pain) Qty: 30 RF: 0 metronidazole 500 mg tablet 500 mg PO TID Qty: 15 RF: 0 ciprofloxacin HCl 500 mg tablet 500 mg PO BID Qty: 10 RF: 0 Discharge Orders: Discharge Order (Routine); Ordered 04/07/20 Ordered By: Wneceslao Ryan Discharge Diet: Advance as tolerated and Clear Liquid Discharge Activity: Increase activity as tolerated Patient Instructions: Ileus (ED) Activity Restrictions/Additional Instructions: Follow-up with medical provider as directed. Call Dr. Saunders tomorrow morning to set up an appointment with him in the outpatient clinic. Take medications as prescribed. Remember to start diet for the next 24 to 48 hours with clear liquids only and then advance as tolerated. Drink plenty of fluids and stay hydrated. Return to the ER or your medical provider if condition worsens. Please read and understand discharge instructions. If any questions, please ask. Discharge Date/Time: 04/07/20 20:11 Sign Out Sign Out Data: Patient Sign Out occurred on 04/07/20 at 17:15. Patient's care was discussed, and care was transferred from to RUSSELL Birmingham. Coding Level of Care Code ED Clockmaker Apprentice for Chg Fwd Exam Detailed
[2020-04-07 16:33] LABS: Alanine Aminotransferase 15 U/L (0-41); Alkaline Phosphatase 61 IU/L (40-130); Aspartate Amino Transferase 15 U/L (0-40); Blood Urea Nitrogen 13 mg/dL (6-20); Calcium 9.8 mg/dL (8.5-10.5); Carbon Dioxide 20 mmol/L (22-29); Chloride 99 mmol/L (98-107); Glomerular Filtration Rate 89.7 mL/min (90-130); Glucose 127 mg/dL (65-115); Lipase 11 U/L (13-60); Osmolality Calculated 278 mOsm/kg (285-295); Sodium 135 mmol/L (136-145); Total Bilirubin 0.9 mg/dL (0.15-1.2)
[2020-04-07] MEDS: morphine 4 mg/mL SDV 1 mL IVP ×2 (17:22→18:50)
[2020-04-07] MEDS: ondansetron 2 mg/ML SDV 2 mL 4 MG IVP (17:22)
[2020-04-07] MEDS: sodium chloride 0.9% 1,000 ML 999 ML IV (17:23)
[2020-04-07] MEDS: iohexol 300 mg/mL 100 mL Btl IV (18:08)
--- NOTE | 2020-04-07 19:09 | PC.NURSE ---
report given oxana wheeler rn assumed care while at bedside pt is in nad.
== END 2020-04-07 20:11 | disposition home or self-care (01) ==
PROVIDERS: Emergency Medicine; Physician Assistant; Emergency Provider Physician Assistant
DX: K56.7 Ileus, unspecified (principal); F17.210 Nicotine dependence, cigarettes, uncomplicated
CPT/HCPCS: 12345; 36415; 74177; 80053; 83605; 83690; 85025; 96361; 96374; 96375; 96376; 99283; J2270; J2405; J7030; Q9967